=== PATIENT | female | born 1965 | race Two or more races ===

== ENCOUNTER 2024-08-27 16:00 | Outpatient (RCR) | payer MEDICAID, SELFPAY ==
--- NOTE | 2024-08-15 11:35 | PTNOTE_ITS ---
PT OP Initial Eval Patient Information Outpatient Physical Therapy Treatment Date: 08/15/24 Visit Reasons: RT rotator cuff repair Medical Diagnosis: [id number] Treatment Dx #1: R shoulder pain Treatment Dx #2: Dec R shoulder ROM Start of Care: 08/15/24 Date of Onset: 05/21/24 Smoking Status Smoking Status: Never smoker Initial Assessment Subjective: Pt is 58 yr old [place] speaking female s/p R RCR 3 months post op reports pain and decreased ROM with reaching up and behind the back. This limits HH chores and reaching and putting coat on. PMH: HTN Pt goal: to move the shoulder more Objective: R shoulder ArOM: FF: 78 deg Abd: 60 deg ER: 45 deg HBB: R hip Strength: 3-/5 in all planes Assessment: Pt presents with decreased R shoulder ROM limited in capsular pattern consistent with adhesive capsulitis secondary to immobilization after RCR. Pt requires skilled therapy and has poor rehab potential due to time passed since surgery. Shoulder A/PROM gains are best acheived during the first 2 months post op. Eval followed by HEP with printout. 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 Ind with HEP ? 2. Improved AROM of R shoulder to at least 135 deg FF, 125 deg abduction and 90 deg ? ER ? 3. Improved HBB ROM to L3 to don shirt and coat ? 4. Pt will reach OH x5 with <=4/10 pain to do hair care Treatment Plan 1. Manual therapy ? 2. Therex ? 3. Modalities as indicated, moist heat pack, ice, electrical stimulation Frequency and Duration: 2x a week for 8 weeks Certification Dates: 08/15/24 to 11/15/24 Procedure Charges OP PT Eval Mod Complex 30 minutes: Yes
--- NOTE | 2024-08-21 10:19 | PT.ODAYNRPT ---
PT Outpatient Daily Note OP Daily Note Outpatient Physical Therapy Treatment Date: 08/21/24 Visit Reasons: RT rotator cuff repair Subjective: Same as time of eval Objective: See F/S for therex MHP during wand therex x7' Ice post Rx x7' Assessment: Good improvement with PROM into ER with wand to about 45 deg Plan: Improve R shoulder ROM Length of Time (minutes) of Treatment: 30 Minutes Procedure Charges Therapeutic Exercise 30 minutes: Yes
--- NOTE | 2024-08-27 17:40 | PT.ODAYNRPT ---
PT Outpatient Daily Note OP Daily Note Outpatient Physical Therapy Treatment Date: 08/27/24 Visit Reasons: RT rotator cuff repair Subjective: Pain of R shoulder with most movements. Objective: See F/S for therex MHP during wand therex x7' Ice post Rx x7' Assessment: Good improvement with PROM into ER with wand to about 45 deg. Pain and ROM limitations consistent with adhesive capsulitis. Plan: Improve R shoulder ROM Procedure Charges Therapeutic Exercise 30 minutes: Yes
== END 2024-09-09 23:59 | disposition home or self-care (01) ==
LOC: CPTX 16:00
PROVIDERS: PCP Nurse Practitioner Family; Referring Provider Orthopaedic Surgery; Visit Provider Orthopaedic Surgery
DX: M25.511 Pain in right shoulder (principal); Z98.890 Other specified postprocedural states; I10 Essential (primary) hypertension
CPT/HCPCS: 97110; 97162

== ENCOUNTER 2024-09-23 13:37 | Outpatient (RCR) | payer MEDICAID, SELFPAY ==
--- NOTE | 2024-09-23 14:44 | PT.ODAYNRPT ---
PT Outpatient Daily Note OP Daily Note Outpatient Physical Therapy Treatment Date: 09/23/24 Visit Reasons: Rt rotator cuff repair Subjective: Pt has been out of town and reports she can reach up better but has pain with lowering arm and reaching behind the back. Objective: See F/S for therex Assessment: Improved AROM into abduction to about 130 deg with pain lowering UE. Plan: Continue per POC Length of Time (minutes) of Treatment: 30 Minutes Procedure Charges Therapeutic Exercise 30 minutes: Yes
== END 2024-10-09 23:59 | disposition home or self-care (01) ==
LOC: CPTX 13:37
PROVIDERS: PCP Orthopaedic Surgery; Referring Provider Orthopaedic Surgery; Visit Provider Orthopaedic Surgery
DX: M25.511 Pain in right shoulder (principal); Z98.890 Other specified postprocedural states; I10 Essential (primary) hypertension
CPT/HCPCS: 97110

== ENCOUNTER 2024-11-06 11:30 | Outpatient (RCR) | payer MEDICAID, SELFPAY ==
--- NOTE | 2024-10-14 13:14 | PT.ODAYNRPT ---
PT Outpatient Daily Note OP Daily Note Outpatient Physical Therapy Treatment Date: 10/14/24 Visit Reasons: Rt rotator cuff repair Subjective: Pt has been out of town and reports she can reach up better but has pain with lowering arm and reaching behind the back. Objective: See F/S for therex Assessment: Improved AROM into abduction to about 130 deg with pain lowering UE. HBB ROM to about L5 Plan: Continue per POC Length of Time (minutes) of Treatment: 30 Minutes Procedure Charges Therapeutic Exercise 30 minutes: Yes
--- NOTE | 2024-11-06 12:56 | PT.ODAYNRPT ---
PT Outpatient Daily Note OP Daily Note Outpatient Physical Therapy Treatment Date: 11/06/24 Visit Reasons: Rt rotator cuff repair Subjective: Pt reports R shoulder is doing better overall but still has pain. Objective: Please see flow sheet for ther ex list. Assessment: Light strengthening interventions tolerated with minimal pain. Plan: Continue with POC. Length of Time (minutes) of Treatment: 30 Minutes Procedure Charges Therapeutic Exercise 30 minutes: Yes
--- NOTE | 2024-11-13 17:20 | PT.ODS1RPT ---
PT OP Progress/Discharge Note Date of Service: 11/13/24 Progress Note/DC Note Progress Note/Discharge Note: DC Note Patient Information Visit Reasons: Rt rotator cuff repair Service Continue Service or Discharge: Discharge Discharge Date: 11/13/24 Status Subjective: Pt says her shoulder is hurting more lately. Assessment: Pt attended the initial evaluation and 5 Rx visits since starting therapy in August with inconsistent attendance and then POC expires on 11/15. She arrived 15' late to the appt today and wasn't treated. Pt doesn't seem to be making progress with goals due to increased shoulder pain. Plan: D/C
== END 2024-11-09 23:59 | disposition home or self-care (01) ==
LOC: CPTX 11:30
PROVIDERS: PCP Orthopaedic Surgery; Referring Provider Orthopaedic Surgery; Visit Provider Orthopaedic Surgery
DX: M25.511 Pain in right shoulder (principal); Z98.890 Other specified postprocedural states; I10 Essential (primary) hypertension
CPT/HCPCS: 97110

== ENCOUNTER → 2025-03-13 | Outpatient (CLI) | payer OTHER, MEDICAID, SELFPAY ==
--- NOTE | 2025-03-13 | XR_ITS ---
Examination: Hand, right 3 views Technique: Hand AP, oblique, lateral 3 views Date and time of exam: March 13, 2025, 1225 hours INDICATIONS: Right hand pain 3 weeks FINDINGS: Moderate juxta-articular bone demineralization Mild osteoarthritis radiocarpal, first carpometacarpal joint, distal interphalangeal joints second through fifth digits and interphalangeal joint first digit No erosive arthritis IMPRESSION: Mild osteoarthritis
--- NOTE | 2025-03-13 | XR_ITS ---
Examination: Wrist, right 3 views Technique: Wrist AP, oblique, lateral 3 views Date and time of exam: March 13 2025, 1225 hours INDICATIONS: Wrist pain beginning 3 weeks ago. FINDINGS: Mild osteoarthritis radiocarpal, navicular trapezium, first carpometacarpal joints No erosive arthritis No fracture IMPRESSION: Osteoarthritis as above
== END | disposition home or self-care (01) ==
PROVIDERS: PCP Nurse Practitioner Family; Referring Provider Nurse Practitioner Family; Visit Provider Nurse Practitioner Family
DX: M18.11 Unilateral primary osteoarthritis of first carpometacarpal joint, right hand (principal); M19.041 Primary osteoarthritis, right hand; M19.031 Primary osteoarthritis, right wrist
CPT/HCPCS: 73110; 73130